=== PATIENT | male | born 1935 | race Two or more races ===

== ENCOUNTER 2024-07-04 14:25 | Inpatient (IN) | payer OTHER ==
[~2024-07-04] VITALS: Ht 160 cm; Wt 51.7 kg
[2024-07-04] MEDS: IV LR 1000 ML 1,000 ML BAG IV ONE (14:51)
[2024-07-04 15:32] LABS: APPEARANCE,URINE CLEAR (CLEAR); BILIRUBIN,URINE NEGATIVE (NEGATIVE); BLOOD, URINE TRACE-INTA Ery/uL (NEGATIVE); COLOR,URINE YELLOW (YELLOW); KETONES,URINE NEGATIVE (NEGATIVE); LEUKOCYTE ESTERASE ,URINE NEGATIVE (NEGATIVE); NITRITE, URINE NEGATIVE (NEGATIVE); PROTEIN,URINE NEGATIVE (NEGATIVE); UGLUCOSE NEGATIVE (NEGATIVE); UROBILINOGEN,URINE 0.2 EU/dL (0.2)
[2024-07-04] MEDS: CEFEPIME 1 GM in IV D5W 50 ML IV ONE (15:38)
[2024-07-04 15:39] LABS: CALCIUM, SERUM 8.4 mg/dL (8.5-10.1); CARBON DIOXIDE 23 mmol/L (21-32); CHLORIDE 108 mmol/L (98-107); CREATININE 1.9 mg/dL (0.6-1.3); GLUCOSE 144 mg/dL (74-106); POTASSIUM 3.6 mmol/L (3.5-5.1); SODIUM SERUM 141 mmol/L (136-145); UREA NITROGEN, BLOOD 57 mg/dL (7-18)
[2024-07-04] MEDS: VANCOMYCIN 1 GM in IV D5W 250 ML IV ONE (15:39)
[2024-07-04] MEDS ORDERED: NOREPINEPHRINE 8MG/250ML RTU 250 ML IV ONE (15:41)
[2024-07-04 15:44] LABS: ALANINE AMINOTRANSFERASE 33 U/L (12-78); ALBUMIN 2.7 g/dL (3.4-5.0); ALKALINE PHOSPHATASE 169 U/L (46-116); ASPARTATE AMINOTRANSFERASE 31 U/L (15-37); BILIRUBIN,DIRECT 0.2 mg/dL (0.0-0.2); BILIRUBIN,TOTAL 0.5 mg/dL (0.2-1.0); TOTAL PROTEIN, SERUM 5.7 g/dL (6.4-8.2)
[2024-07-04] MEDS: NOREPINEPHRINE 8 MG in IV D5W 242 ML IV PRN (15:56)
[2024-07-04 15:59] LABS: BASOPHILS % (AUTO) 0.1 % (0.0-2.0); HEMATOCRIT 32 % (39-51); HEMOGLOBIN 10.6 g/dL (13.5-17.5); LACTIC ACID 2.2 mmol/L (0.4-2.0); LYMPHOCYTES # (AUTO) 0.9 K/uL (0.8-4.8); LYMPHOCYTES % (AUTO) 8.5 % (20.0-44.0); MEAN CORPUSCULAR HEMOGLOBIN 30 PG (26.0-33.0); MEAN CORPUSCULAR HGB CONC 33 g/dl (31.0-36.0); MEAN CORPUSCULAR VOLUME 90 fL (80-96); MONOCYTES # (AUTO) 0.4 K/uL (0.1-1.30); NEUTROPHILS # (AUTO) 8.9 K/uL (1.8-8.9); NEUTROPHILS % (AUTO) 87.4 % (43.0-81.0); PLATELET COUNT (AUTO) 166 K/uL (150-450); RED BLOOD CELL COUNT(AUTO) 3.56 MIL/uL (4.5-6.0); RED CELL DISTRIBUTION WIDTH 15.9 % (11.5-15.0); WHITE BLOOD COUNT (AUTO) 10.2 K/uL (4.3-11.0)
[2024-07-04 16:05] LABS: INR 1.09 (0.91-1.10); PROTHROMBIN TIME 11.5 SECS (9.2-11.1)
[2024-07-04 16:14] LABS: ADD URINE CULTURE YES; BACTERIA,URINE 3+ /HPF (None Seen); SQUAMOUS EPITHELIAL CELL,UR 0-2 /HPF (None Seen); WBC,URINE 0-2 /HPF (0-3)
[2024-07-04] MEDS ORDERED: HYDR-4209 PO (16:36)
[2024-07-04] MEDS ORDERED: ACET-868 PO (16:36)
[2024-07-04] MEDS ORDERED: FERR220S2 PO (16:36)
[2024-07-04] MEDS ORDERED: VALP250S4 PO (16:36)
[2024-07-04] MEDS ORDERED: ACET-2030 PO (16:36)
[2024-07-04] MEDS ORDERED: OMEP10CA5 PO (16:36)
[2024-07-04] MEDS ORDERED: INSU100I4 SQ (16:36)
[2024-07-04] MEDS ORDERED: BISA10SU11 RC (16:36)
[2024-07-04] MEDS ORDERED: FERR325T28 GT (16:36)
[2024-07-04] MEDS ORDERED: LISI10TA29 PO (16:36)
[2024-07-04] MEDS ORDERED: MULT-213 PO (16:36)
[2024-07-04] MEDS ORDERED: POLY17PO4 PO (16:36)
[2024-07-04] MEDS ORDERED: [UNRECOGNIZED DRUG - OTHER] SQ (16:36)
[2024-07-04] MEDS ORDERED: METF-440 PO (16:36)
[2024-07-04] MEDS ORDERED: MAGN400O6 PO (16:36)
[2024-07-04] MEDS ORDERED: NITR0.4T48 SL (16:36)
[2024-07-04] MEDS ORDERED: NA P133E RC (16:36)
[2024-07-04] MEDS ORDERED: DONE5TAB34 PO (16:36)
[2024-07-04] MEDS ORDERED: OLAN5TAB3 PO (16:36)
[2024-07-04] MEDS ORDERED: GLUC1KIT IM (16:36)
[2024-07-04] MEDS ORDERED: ASPI-1169 PO (16:36)
[2024-07-04] MEDS ORDERED: CARV12.5 PO (16:36)
[2024-07-04] MEDS ORDERED: ASCO-352 PO (16:36)
[2024-07-04] MEDS ORDERED: IPRA3AMP22 IH (16:36)
[2024-07-04] MEDS ORDERED: ATOR80TA PO (16:36)
[2024-07-04] MEDS ORDERED: AMLO5TAB4 PO (16:36)
[2024-07-04] MEDS ORDERED: DOCU50LI PO (16:36)
[2024-07-04] MEDS ORDERED: ACETAMINOPHEN 325 MG TABLET PO PRN (20:00)
[2024-07-04] MEDS: IV NS 0.9% 1,000 ML IV SCH (20:00)
[2024-07-04] MEDS ORDERED: ONDANSETRON HCL/PF 4 MG/2 ML VIAL IVP PRN (20:00)
[2024-07-04] MEDS ORDERED: *INSULIN REGULAR(HUMULIN R)HUM 100 UNIT/ML VIAL SQ PRN (20:00)
[2024-07-04] MEDS ORDERED: ALBUTEROL FS 2.5 MG/0.5 ML VIAL.NEB NEB PRN (20:00)
[2024-07-04] MEDS ORDERED: DEXTROSE 50%-WATER 50 ML DISP.SYRIN IV PRN (20:00)
[2024-07-04] MEDS: HEPARIN SODIUM, PORCINE 5000 UNITS/1 ML VIAL SQ SCH (21:00)
[2024-07-04] MEDS: BLOOD SUGAR DIAGNOSTIC 1 EACH STRIP VI SCH (22:00)
[2024-07-04] MEDS: MINERAL OIL 133 ML (PYXIS) 1 EA ENEMA RC ONE (23:30)
[2024-07-05] VITALS (64 sets, daily range): BP systolic 76–169; BP diastolic 50–85; TEMP 97.1–98; O2SAT 87–100
[2024-07-05] MEDS ORDERED: IPRATROPIUM/ALBUTEROL INHALER IH SCH
[2024-07-05] MEDS ORDERED: MINERAL OIL 133 ML (PYXIS) 1 EA ENEMA RC ONE (01:39)
[2024-07-05] MEDS ORDERED: HEPARIN SODIUM, PORCINE 5000 UNITS/1 ML VIAL ONE (01:39)
[2024-07-05 05:34] LABS: ABG BASE EXCESS -3.1 mmol/L (-2.0-3.0); ABG PCO2 42.8 mmHg (35.0-48.0); ABG PH 7.341 (7.350-7.450); ABG TOTAL HEMOGLOBIN 13.8 G/dL (13.5-17.5); COHb 0.3 % (0.5-1.5); MetHb 0.3 % (0.0-1.5); O2Hb 94.4 % (94.0-97.0); SITE, ABG RIGHT RADIAL
[2024-07-05 06:15] LABS: BASOPHILS % (AUTO) 0.2 % (0.0-2.0); HEMATOCRIT 42 % (39-51); HEMOGLOBIN 13.4 g/dL (13.5-17.5); LYMPHOCYTES # (AUTO) 0.7 K/uL (0.8-4.8); LYMPHOCYTES % (AUTO) 4.4 % (20.0-44.0); MEAN CORPUSCULAR HEMOGLOBIN 29 PG (26.0-33.0); MEAN CORPUSCULAR HGB CONC 32 g/dl (31.0-36.0); MEAN CORPUSCULAR VOLUME 90 fL (80-96); MONOCYTES # (AUTO) 0.7 K/uL (0.1-1.30); MONOCYTES % (AUTO) 3.8 % (2.0-12.0); NEUTROPHILS # (AUTO) 15.6 K/uL (1.8-8.9); NEUTROPHILS % (AUTO) 91.6 % (43.0-81.0); PLATELET COUNT (AUTO) 174 K/uL (150-450); RED CELL DISTRIBUTION WIDTH 15.7 % (11.5-15.0)
[2024-07-05 07:19] LABS: ALBUMIN 2.6 g/dL (3.4-5.0); BILIRUBIN,TOTAL 0.5 mg/dL (0.2-1.0); CALCIUM, SERUM 8.2 mg/dL (8.5-10.1); CREATININE 1.1 mg/dL (0.6-1.3); MAGNESIUM 1.9 mg/dL (1.8-2.4); PHOSPHORUS 4.2 mg/dL (2.5-4.9); POTASSIUM 3.4 mmol/L (3.5-5.1); TOTAL PROTEIN, SERUM 5.9 g/dL (6.4-8.2)
[2024-07-05] MEDS: IPRATROPIUM NEB FS 0.5 MG/2.5 ML AMPUL.NEB IH SCH (08:21)
[2024-07-05] MEDS: ALBUTEROL FS 2.5 MG/0.5 ML VIAL.NEB NEB SCH (08:22)
[2024-07-05] MEDS ORDERED: IPRATROPIUM NEB FS 0.5 MG/2.5 ML AMPUL.NEB ONE (08:25)
[2024-07-05] MEDS ORDERED: ALBUTEROL FS 2.5 MG/0.5 ML VIAL.NEB ONE (08:25)
[2024-07-05] MEDS: FERROUS SULFATE (325 MG) 325 MG/TAB TABLET GT SCH (09:00)
[2024-07-05] MEDS: ASPIRIN 81 MG TAB.CHEW PO SCH (09:00)
[2024-07-05] MEDS: VALPROIC ACID 250 MG/5 ML UDC PO SCH (09:00)
[2024-07-05] MEDS: POLYETHYLENE GLYCOL 3350 17 GM POWD.PACK PO SCH (09:00)
[2024-07-05] MEDS: DOCUSATE SODIUM LIQ 100 MG/10 ML UDC PO SCH (09:00)
[2024-07-05] MEDS: DONEPEZIL 5 MG TABLET PO SCH (09:00)
[2024-07-05] MEDS: POTASSIUM CHLORIDE 20 MEQ TAB.PRT.SR PO SCH (09:00)
[2024-07-05] MEDS: OLANZAPINE 5 MG TABLET PO SCH (09:00)
[2024-07-05] MEDS: LACTULOSE 10 G/15 ML UDC (PYXIS) PO ONE (11:35)
[2024-07-05] MEDS: BISACODYL SUPP (10 MG) 10 MG/SUPP.RECT SUPP.RECT RC ONE (11:36)
[2024-07-05] MEDS: MORPHINE SULFATE INJ 2 MG/ML DISP.SYRIN IV PRN (12:13)
[2024-07-05] MEDS: SORBITOL SOLUTION 70% 30 ML SOLUTION PO ONE (12:14)
[2024-07-05 13:47] LABS: URINE TOTAL PROTEIN 55.6 mg/dL (0-11.9)
[2024-07-05] MEDS: CEFEPIME 2 GM in IV D5W 100 ML IV SCH (14:44)
[2024-07-05] MEDS: VANCOMYCIN 750 MG in IV D5W 250 ML IV SCH (14:51)
[2024-07-05] MEDS: NOREPINEPHRINE 8 MG in IV D5W 242 ML IV PRN (14:51)
[2024-07-05] MEDS ORDERED: CEFEPIME 1 GM in IV D5W 50 ML IV SCH (15:00)
[2024-07-05] MEDS ORDERED: VANCOMYCIN 500 MG in IV D5W 100ml IV SCH (15:00)
[2024-07-05] MEDS: ATORVASTATIN 40 MG TABLET PO SCH (21:52)
[2024-07-05] MEDS: INSULIN GLARGINE, 100 UNIT/ML CARTRIDGE SQ SCH (21:53)
[2024-07-05] MEDS: IV NS 0.9% 250 ML IV PRN (22:22)
[2024-07-06] VITALS (57 sets, daily range): BP systolic 105–189; BP diastolic 54–118; TEMP 97.2–98.5; O2SAT 88–100
[2024-07-06 05:34] LABS: EOSINOPHILS % (AUTO) 0.1 % (0.0-6.0); HEMATOCRIT 33 % (39-51); LYMPHOCYTES # (AUTO) 0.9 K/uL (0.8-4.8); LYMPHOCYTES % (AUTO) 11.3 % (20.0-44.0); MEAN CORPUSCULAR HEMOGLOBIN 30 PG (26.0-33.0); MEAN CORPUSCULAR HGB CONC 34 g/dl (31.0-36.0); MEAN CORPUSCULAR VOLUME 88 fL (80-96); MONOCYTES # (AUTO) 0.4 K/uL (0.1-1.30); MONOCYTES % (AUTO) 5.1 % (2.0-12.0); NEUTROPHILS # (AUTO) 6.5 K/uL (1.8-8.9); NEUTROPHILS % (AUTO) 83.5 % (43.0-81.0); PLATELET COUNT (AUTO) 141 K/uL (150-450); RED BLOOD CELL COUNT(AUTO) 3.74 MIL/uL (4.5-6.0); RED CELL DISTRIBUTION WIDTH 15.8 % (11.5-15.0); WHITE BLOOD COUNT (AUTO) 7.8 K/uL (4.3-11.0)
[2024-07-06 05:57] LABS: CALCIUM, SERUM 8.6 mg/dL (8.5-10.1); CREATININE 0.8 mg/dL (0.6-1.3); PHOSPHORUS 2.7 mg/dL (2.5-4.9); POTASSIUM 2.9 mmol/L (3.5-5.1)
[2024-07-06] MEDS: POTASSIUM CL. PREMIX PERIPHER. 50 ML IV SCH (10:47)
[2024-07-06] MEDS: IV 1/2NS 1000 ML 1,000 ML IV PRN (12:27)
[2024-07-06] MEDS: VANCOMYCIN 1 GM in IV D5W 250 ML IV SCH (15:44)
[2024-07-07] VITALS (25 sets, daily range): BP systolic 98–174; BP diastolic 63–87; TEMP 97.4–98; O2SAT 94–100
[2024-07-07] MEDS: CARVEDILOL 12.5 MG TABLET PO SCH (10:00)
[2024-07-07 10:50] LABS: CALCIUM, SERUM 8.3 mg/dL (8.5-10.1); CREATININE 0.7 mg/dL (0.6-1.3); MAGNESIUM 1.8 mg/dL (1.8-2.4); PHOSPHORUS 2.1 mg/dL (2.5-4.9); POTASSIUM 3.9 mmol/L (3.5-5.1)
[2024-07-07 10:55] LABS: BASOPHILS % (AUTO) 0.1 % (0.0-2.0); EOSINOPHILS % (AUTO) 0.5 % (0.0-6.0); HEMATOCRIT 34 % (39-51); HEMOGLOBIN 11.4 g/dL (13.5-17.5); LYMPHOCYTES % (AUTO) 13.5 % (20.0-44.0); MEAN CORPUSCULAR HEMOGLOBIN 30 PG (26.0-33.0); MEAN CORPUSCULAR HGB CONC 33 g/dl (31.0-36.0); MEAN CORPUSCULAR VOLUME 89 fL (80-96); MONOCYTES # (AUTO) 0.6 K/uL (0.1-1.30); MONOCYTES % (AUTO) 7.3 % (2.0-12.0); NEUTROPHILS # (AUTO) 6.1 K/uL (1.8-8.9); NEUTROPHILS % (AUTO) 78.6 % (43.0-81.0); PLATELET COUNT (AUTO) 110 K/uL (150-450); RED BLOOD CELL COUNT(AUTO) 3.84 MIL/uL (4.5-6.0); RED CELL DISTRIBUTION WIDTH 16.2 % (11.5-15.0); WHITE BLOOD COUNT (AUTO) 7.7 K/uL (4.3-11.0)
[2024-07-07] MEDS: LISINOPRIL (10MG) 10 MG TABLET PO SCH (11:54)
[2024-07-07] MEDS: AMLODIPINE BESYLATE 5 MG TABLET PO SCH (11:54)
[2024-07-07] MEDS: K PHOS NEUTRAL 250 MG TABLET PO ONE (16:43)
[2024-07-07] MEDS: INSULIN REGULAR, HUMAN 100 UNIT/ML 3 ML VIAL SQ PRN (16:59)
[2024-07-08] VITALS (44 sets, daily range): BP systolic 72–158; BP diastolic 57–89; TEMP 97.3–98.2; O2SAT 95–100
[2024-07-08 06:37] LABS: BASOPHILS % (AUTO) 0.2 % (0.0-2.0); EOSINOPHILS # (AUTO) 0.1 K/uL (0.0-0.7); EOSINOPHILS % (AUTO) 1.1 % (0.0-6.0); HEMATOCRIT 36 % (39-51); HEMOGLOBIN 11.3 g/dL (13.5-17.5); LYMPHOCYTES # (AUTO) 1.2 K/uL (0.8-4.8); LYMPHOCYTES % (AUTO) 15.4 % (20.0-44.0); MEAN CORPUSCULAR HEMOGLOBIN 30 PG (26.0-33.0); MEAN CORPUSCULAR HGB CONC 32 g/dl (31.0-36.0); MEAN CORPUSCULAR VOLUME 93 fL (80-96); MONOCYTES # (AUTO) 0.5 K/uL (0.1-1.30); NEUTROPHILS # (AUTO) 6.3 K/uL (1.8-8.9); NEUTROPHILS % (AUTO) 77.3 % (43.0-81.0); PLATELET COUNT (AUTO) 105 K/uL (150-450); RED BLOOD CELL COUNT(AUTO) 3.81 MIL/uL (4.5-6.0); RED CELL DISTRIBUTION WIDTH 16.2 % (11.5-15.0); WHITE BLOOD COUNT (AUTO) 8.1 K/uL (4.3-11.0)
[2024-07-08 06:49] LABS: CALCIUM, SERUM 8.8 mg/dL (8.5-10.1); CREATININE 0.6 mg/dL (0.6-1.3); MAGNESIUM 1.9 mg/dL (1.8-2.4); PHOSPHORUS 2.7 mg/dL (2.5-4.9); POTASSIUM 3.4 mmol/L (3.5-5.1)
[2024-07-08] MEDS: POTASSIUM CHLORIDE 20 MEQ TAB.PRT.SR PO SCH (10:44)
[2024-07-08] MEDS: NOREPINEPHRINE 8 MG in IV D5W 242 ML IV PRN (14:08)
[2024-07-08 14:26] LABS: ABG OXYGEN SATURATION 97.5 % (94.0-98.0); ABG PH 7.305 (7.350-7.450); ABG PO2 112.9 mmHg (83.0-108.0); ABG TOTAL HEMOGLOBIN 12.2 G/dL (13.5-17.5); COHb 0.3 % (0.5-1.5); MetHb 0.2 % (0.0-1.5); PEEP,BG 0 cm H2O; SITE, ABG RIGHT RADIAL; VT, ABG 450 mL
[2024-07-08] MEDS ORDERED: DEXTROSE 50%-WATER 50 ML DISP.SYRIN IV PRN (14:30)
[2024-07-08 14:35] LABS: CREATININE 0.8 mg/dL (0.6-1.3); POTASSIUM 3.8 mmol/L (3.5-5.1)
[2024-07-08 14:36] LABS: BASOPHILS % (AUTO) 0.3 % (0.0-2.0); EOSINOPHILS % (AUTO) 0.5 % (0.0-6.0); HEMATOCRIT 35 % (39-51); LYMPHOCYTES # (AUTO) 1.4 K/uL (0.8-4.8); LYMPHOCYTES % (AUTO) 17.3 % (20.0-44.0); MEAN CORPUSCULAR HEMOGLOBIN 30 PG (26.0-33.0); MEAN CORPUSCULAR HGB CONC 32 g/dl (31.0-36.0); MEAN CORPUSCULAR VOLUME 96 fL (80-96); MONOCYTES # (AUTO) 0.4 K/uL (0.1-1.30); MONOCYTES % (AUTO) 4.7 % (2.0-12.0); NEUTROPHILS # (AUTO) 6.4 K/uL (1.8-8.9); NEUTROPHILS % (AUTO) 77.2 % (43.0-81.0); PLATELET COUNT (AUTO) 115 K/uL (150-450); RED BLOOD CELL COUNT(AUTO) 3.65 MIL/uL (4.5-6.0); RED CELL DISTRIBUTION WIDTH 17.1 % (11.5-15.0); WHITE BLOOD COUNT (AUTO) 8.3 K/uL (4.3-11.0)
[2024-07-08 14:39] LABS: MAGNESIUM 1.8 mg/dL (1.8-2.4); PHOSPHORUS 4.5 mg/dL (2.5-4.9)
[2024-07-08] MEDS ORDERED: EPINEPHRINE (1:10,000) SYRINGE 1 MG/10 ML DISP.SYRIN IVP ONE (14:39)
[2024-07-08] MEDS: IV D5/0.45 NACL 1,000 ML IV SCH (15:14)
[2024-07-08 15:17] LABS: LYMPHOCYTES % (MANUAL) 24 % (16-48); MONOCYTES % (MANUAL) 1 % (0-11.0); NEUTROPHILS % (MANUAL) 75 (42-76); PLATELET ESTIMATE DECREASED
[2024-07-08] MEDS: BLOOD SUGAR DIAGNOSTIC 1 EACH STRIP IN SCH (17:30)
[2024-07-08] MEDS: PROPOFOL 100 ML IV PRN (19:07)
[2024-07-09] VITALS (84 sets, daily range): BP systolic 63–171; BP diastolic 52–99; TEMP 97.8–99; O2SAT 98–100
[2024-07-09 05:02] LABS: BASOPHILS % (AUTO) 0.2 % (0.0-2.0); EOSINOPHILS # (AUTO) 0.2 K/uL (0.0-0.7); HEMATOCRIT 38 % (39-51); HEMOGLOBIN 12.2 g/dL (13.5-17.5); LYMPHOCYTES # (AUTO) 1.9 K/uL (0.8-4.8); LYMPHOCYTES % (AUTO) 11.2 % (20.0-44.0); MEAN CORPUSCULAR HEMOGLOBIN 30 PG (26.0-33.0); MEAN CORPUSCULAR HGB CONC 32 g/dl (31.0-36.0); MEAN CORPUSCULAR VOLUME 92 fL (80-96); MONOCYTES # (AUTO) 0.9 K/uL (0.1-1.30); MONOCYTES % (AUTO) 5.1 % (2.0-12.0); NEUTROPHILS % (AUTO) 82.5 % (43.0-81.0); PLATELET COUNT (AUTO) 109 K/uL (150-450); RED CELL DISTRIBUTION WIDTH 16.1 % (11.5-15.0); WHITE BLOOD COUNT (AUTO) 16.9 K/uL (4.3-11.0)
[2024-07-09 05:14] LABS: ALBUMIN 1.9 g/dL (3.4-5.0); BILIRUBIN,TOTAL 0.5 mg/dL (0.2-1.0); CALCIUM, SERUM 7.8 mg/dL (8.5-10.1); CREATININE 0.8 mg/dL (0.6-1.3); MAGNESIUM 1.8 mg/dL (1.8-2.4); PHOSPHORUS 2.3 mg/dL (2.5-4.9); POTASSIUM 3.1 mmol/L (3.5-5.1); TOTAL PROTEIN, SERUM 5.1 g/dL (6.4-8.2)
[2024-07-09] MEDS ORDERED: LACTULOSE 10 G/15 ML UDC (PYXIS) PO PRN (10:00)
[2024-07-09] MEDS: POTASSIUM CHLORIDE 20 MEQ TAB.PRT.SR PO SCH (10:50)
[2024-07-09] MEDS: LACTULOSE 10 G/15 ML UDC (PYXIS) GT ONE (11:58)
[2024-07-09 13:03] LABS: LACTIC ACID 2.2 mmol/L (0.4-2.0)
[2024-07-09] MEDS ORDERED: PHARMACY TO CHANGE PO MEDS TO GT/NG XX PRN (16:00)
[2024-07-09] MEDS: OLANZAPINE 5 MG TABLET GT SCH (16:50)
[2024-07-09] MEDS: DOCUSATE SODIUM LIQ 100 MG/10 ML UDC GT SCH (16:50)
[2024-07-09] MEDS: NEUTRA PHOS 1 POWD.PACKET GT ONE (16:51)
[2024-07-09] MEDS: CARVEDILOL 12.5 MG TABLET GT SCH (17:00)
[2024-07-09] MEDS: VALPROIC ACID 250 MG/5 ML UDC GT SCH (17:30)
[2024-07-09 18:37] LABS: BILIRUBIN,DIRECT 0.1 mg/dL (0.0-0.2)
[2024-07-09 18:43] LABS: LACTIC ACID REFLEX 1.6 mmol/L (0.4-1.9)
[2024-07-09] MEDS: LACTULOSE 10 G/15 ML UDC (PYXIS) PO ONE (19:40)
[2024-07-09] MEDS: MEROPENEM 1 G in IV NS 0.9% 100 ML IV SCH (21:00)
[2024-07-09] MEDS: ATORVASTATIN 40 MG TABLET GT SCH (22:15)
[2024-07-10] VITALS (99 sets, daily range): BP systolic 58–223; BP diastolic 48–159; TEMP 98.3–99.1; O2SAT 93–100
[2024-07-10 05:08] LABS: BASOPHILS % (AUTO) 0.3 % (0.0-2.0); EOSINOPHILS % (AUTO) 0.2 % (0.0-6.0); HEMATOCRIT 36 % (39-51); HEMOGLOBIN 12.2 g/dL (13.5-17.5); LYMPHOCYTES % (AUTO) 8.7 % (20.0-44.0); MEAN CORPUSCULAR HEMOGLOBIN 30 PG (26.0-33.0); MEAN CORPUSCULAR HGB CONC 34 g/dl (31.0-36.0); MEAN CORPUSCULAR VOLUME 88 fL (80-96); MONOCYTES # (AUTO) 0.6 K/uL (0.1-1.30); MONOCYTES % (AUTO) 5.5 % (2.0-12.0); NEUTROPHILS # (AUTO) 9.9 K/uL (1.8-8.9); NEUTROPHILS % (AUTO) 85.3 % (43.0-81.0); PLATELET COUNT (AUTO) 117 K/uL (150-450); RED BLOOD CELL COUNT(AUTO) 4.11 MIL/uL (4.5-6.0); WHITE BLOOD COUNT (AUTO) 11.6 K/uL (4.3-11.0)
[2024-07-10 05:38] LABS: CALCIUM, SERUM 8.3 mg/dL (8.5-10.1); CREATININE 0.8 mg/dL (0.6-1.3); MAGNESIUM 1.5 mg/dL (1.8-2.4); PHOSPHORUS 2.6 mg/dL (2.5-4.9)
[2024-07-10 05:58] LABS: POTASSIUM 2.7 mmol/L (3.5-5.1)
[2024-07-10] MEDS: GLUCERNA 1.2 1,000 ML BOTTLE NG PRN (06:00)
[2024-07-10] MEDS ORDERED: POTASSIUM CHLORIDE 10 MEQ/50 ML PREMIXED IVPB FOR PERIPHERAL LINE IV ONE (06:30)
[2024-07-10] MEDS: POTASSIUM CL. PREMIX PERIPHER. 50 ML IV SCH ×2 (06:43→17:06)
[2024-07-10] MEDS: AMLODIPINE BESYLATE 5 MG TABLET GT SCH (09:00)
[2024-07-10] MEDS: LISINOPRIL (10MG) 10 MG TABLET GT SCH (09:00)
[2024-07-10] MEDS: IV NS 0.9% 500 ML IV ONE (09:27)
[2024-07-10] MEDS: POLYETHYLENE GLYCOL 3350 17 GM POWD.PACK GT SCH (09:29)
[2024-07-10] MEDS: ASPIRIN 81 MG TAB.CHEW GT SCH (09:31)
[2024-07-10] MEDS: DONEPEZIL 5 MG TABLET GT SCH (09:31)
[2024-07-10] MEDS: METOCLOPRAMIDE HCL 10 MG/2 ML VIAL IV SCH (11:16)
[2024-07-10] MEDS: Magnesium 1GM/D5W 100ML PREMIX 100 ML IV SCH (11:17)
[2024-07-10] MEDS: NOREPINEPHRINE 8 MG in IV D5W 242 ML IV PRN (13:29)
[2024-07-10 15:11] LABS: CALCIUM, SERUM 8.4 mg/dL (8.5-10.1); CREATININE 0.9 mg/dL (0.6-1.3)
[2024-07-10 15:24] LABS: POTASSIUM 2.5 mmol/L (3.5-5.1)
[2024-07-10] MEDS: POTASSIUM CHLORIDE 20 MEQ POWDER PACKET GT SCH (16:45)
[2024-07-10] MEDS: INSULIN REGULAR, HUMAN 100 UNIT/ML 3 ML VIAL SQ PRN (23:20)
[2024-07-11] VITALS (92 sets, daily range): BP systolic 69–154; BP diastolic 54–99; TEMP 97.5–98.2; O2SAT 88–100
[2024-07-11 00:30] LABS: CALCIUM, SERUM 8.3 mg/dL (8.5-10.1)
[2024-07-11 04:38] LABS: BASOPHILS % (AUTO) 0.1 % (0.0-2.0); EOSINOPHILS # (AUTO) 0.1 K/uL (0.0-0.7); HEMATOCRIT 34 % (39-51); HEMOGLOBIN 11.2 g/dL (13.5-17.5); LYMPHOCYTES # (AUTO) 1.2 K/uL (0.8-4.8); LYMPHOCYTES % (AUTO) 9.5 % (20.0-44.0); MEAN CORPUSCULAR HEMOGLOBIN 29 PG (26.0-33.0); MEAN CORPUSCULAR HGB CONC 33 g/dl (31.0-36.0); MEAN CORPUSCULAR VOLUME 88 fL (80-96); MONOCYTES # (AUTO) 0.8 K/uL (0.1-1.30); MONOCYTES % (AUTO) 5.9 % (2.0-12.0); NEUTROPHILS # (AUTO) 10.6 K/uL (1.8-8.9); NEUTROPHILS % (AUTO) 83.5 % (43.0-81.0); PLATELET COUNT (AUTO) 122 K/uL (150-450); RED BLOOD CELL COUNT(AUTO) 3.86 MIL/uL (4.5-6.0); RED CELL DISTRIBUTION WIDTH 15.9 % (11.5-15.0); WHITE BLOOD COUNT (AUTO) 12.7 K/uL (4.3-11.0)
[2024-07-11 04:56] LABS: ALBUMIN 2.1 g/dL (3.4-5.0); BILIRUBIN,TOTAL 0.6 mg/dL (0.2-1.0); CALCIUM, SERUM 8.2 mg/dL (8.5-10.1); MAGNESIUM 1.9 mg/dL (1.8-2.4); PHOSPHORUS 2.3 mg/dL (2.5-4.9); TOTAL PROTEIN, SERUM 5.4 g/dL (6.4-8.2)
[2024-07-11] MEDS: POTASSIUM CHLORIDE 10 MEQ/50 ML PREMIXED IVPB FOR PERIPHERAL LINE IV ONE (07:06)
[2024-07-11] MEDS: SIMETHICONE 80 MG TAB.CHEW PO SCH (09:18)
[2024-07-11] MEDS: FAMOTIDINE/PF INJ 20 MG/2 ML VIAL IV SCH (09:18)
[2024-07-11] MEDS: POTASSIUM CL. PREMIX PERIPHER. 50 ML IV SCH (11:20)
[2024-07-11] MEDS: NEUTRA PHOS 1 POWD.PACKET PO ONE (15:29)
[2024-07-11] MEDS: Magnesium 1GM/D5W 100ML PREMIX 100 ML IV SCH (17:16)
[2024-07-12] VITALS (87 sets, daily range): BP systolic 84–208; BP diastolic 50–122; TEMP 97.2–97.7; O2SAT 92–100
[2024-07-12 05:24] LABS: BASOPHILS % (AUTO) 0.1 % (0.0-2.0); EOSINOPHILS # (AUTO) 0.1 K/uL (0.0-0.7); EOSINOPHILS % (AUTO) 1.3 % (0.0-6.0); HEMATOCRIT 33 % (39-51); LYMPHOCYTES # (AUTO) 0.8 K/uL (0.8-4.8); LYMPHOCYTES % (AUTO) 8.4 % (20.0-44.0); MEAN CORPUSCULAR HEMOGLOBIN 30 PG (26.0-33.0); MEAN CORPUSCULAR HGB CONC 33 g/dl (31.0-36.0); MEAN CORPUSCULAR VOLUME 90 fL (80-96); MONOCYTES # (AUTO) 0.7 K/uL (0.1-1.30); MONOCYTES % (AUTO) 7.1 % (2.0-12.0); NEUTROPHILS # (AUTO) 8.2 K/uL (1.8-8.9); NEUTROPHILS % (AUTO) 83.1 % (43.0-81.0); PLATELET COUNT (AUTO) 97 K/uL (150-450); RED BLOOD CELL COUNT(AUTO) 3.66 MIL/uL (4.5-6.0); RED CELL DISTRIBUTION WIDTH 15.8 % (11.5-15.0); WHITE BLOOD COUNT (AUTO) 9.9 K/uL (4.3-11.0)
[2024-07-12 05:35] LABS: CALCIUM, SERUM 8.2 mg/dL (8.5-10.1); CREATININE 0.6 mg/dL (0.6-1.3); MAGNESIUM 2.3 mg/dL (1.8-2.4); PHOSPHORUS 2.2 mg/dL (2.5-4.9); POTASSIUM 3.8 mmol/L (3.5-5.1)
[2024-07-12 06:12] LABS: ANISOCYTOSIS 1+; BASOPHILS % (MANUAL) 0 % (0.0-2.0); EOSINOPHILS % (MANUAL) 2 % (0-4); LYMPHOCYTES % (MANUAL) 10 % (16-48); MONOCYTES % (MANUAL) 6 % (0-11.0); NEUTROPHILS % (MANUAL) 82 (42-76); PLATELET ESTIMATE DECREASED
[2024-07-12] MEDS: IV D5/0.45 NACL 1,000 ML IV PRN (11:00)
[2024-07-12] MEDS: Sodium Phosphate 15 MMOL in IV NS 0.9% 245 ML IV SCH (17:29)
[2024-07-12] MEDS: VALPROATE 250 MG in IV D5W 100 ML IV SCH (21:28)
[2024-07-12] MEDS ORDERED: MICAFUNGIN SODIUM 100 MG VIAL IV ONE (21:53)
[2024-07-12] MEDS: MICAFUNGIN SODIUM 100 MG in IV NS 0.9% 100 ML IV SCH (22:33)
[2024-07-13] VITALS (44 sets, daily range): BP systolic 92–171; BP diastolic 55–105; TEMP 97.2–98; O2SAT 95–100
[2024-07-13 05:17] LABS: BASOPHILS % (AUTO) 0.1 % (0.0-2.0); EOSINOPHILS # (AUTO) 0.1 K/uL (0.0-0.7); EOSINOPHILS % (AUTO) 0.9 % (0.0-6.0); HEMATOCRIT 32 % (39-51); HEMOGLOBIN 10.6 g/dL (13.5-17.5); LYMPHOCYTES # (AUTO) 0.5 K/uL (0.8-4.8); LYMPHOCYTES % (AUTO) 6.2 % (20.0-44.0); MEAN CORPUSCULAR HEMOGLOBIN 29 PG (26.0-33.0); MEAN CORPUSCULAR HGB CONC 34 g/dl (31.0-36.0); MEAN CORPUSCULAR VOLUME 87 fL (80-96); MONOCYTES # (AUTO) 0.6 K/uL (0.1-1.30); MONOCYTES % (AUTO) 7.3 % (2.0-12.0); NEUTROPHILS # (AUTO) 7.5 K/uL (1.8-8.9); NEUTROPHILS % (AUTO) 85.5 % (43.0-81.0); PLATELET COUNT (AUTO) 101 K/uL (150-450); RED BLOOD CELL COUNT(AUTO) 3.62 MIL/uL (4.5-6.0); RED CELL DISTRIBUTION WIDTH 15.6 % (11.5-15.0); WHITE BLOOD COUNT (AUTO) 8.8 K/uL (4.3-11.0)
[2024-07-13 05:34] LABS: CALCIUM, SERUM 8.3 mg/dL (8.5-10.1); CREATININE 0.6 mg/dL (0.6-1.3); MAGNESIUM 1.9 mg/dL (1.8-2.4); POTASSIUM 3.8 mmol/L (3.5-5.1)
[2024-07-13] MEDS ORDERED: ATROPINE SULFATE 1 MG/10 ML DISP.SYRIN IV ONE (09:30)
[2024-07-13] MEDS ORDERED: NEOSTIGMINE METHYLSULFATE INJ 1 MG/ML VIAL IV ONE (09:30)
[2024-07-13] MEDS: hydrALAZINE HCL IV 20 MG VIAL IV PRN (20:29)
[2024-07-14] VITALS (44 sets, daily range): BP systolic 93–165; BP diastolic 58–103; TEMP 97.2–97.9; O2SAT 96–100
[2024-07-14 04:57] LABS: BASOPHILS % (AUTO) 0.1 % (0.0-2.0); EOSINOPHILS # (AUTO) 0.1 K/uL (0.0-0.7); EOSINOPHILS % (AUTO) 1.1 % (0.0-6.0); HEMATOCRIT 33 % (39-51); HEMOGLOBIN 11.3 g/dL (13.5-17.5); LYMPHOCYTES # (AUTO) 0.7 K/uL (0.8-4.8); LYMPHOCYTES % (AUTO) 9.7 % (20.0-44.0); MEAN CORPUSCULAR HEMOGLOBIN 29 PG (26.0-33.0); MEAN CORPUSCULAR HGB CONC 34 g/dl (31.0-36.0); MEAN CORPUSCULAR VOLUME 87 fL (80-96); MONOCYTES # (AUTO) 0.5 K/uL (0.1-1.30); MONOCYTES % (AUTO) 6.9 % (2.0-12.0); NEUTROPHILS # (AUTO) 6.2 K/uL (1.8-8.9); NEUTROPHILS % (AUTO) 82.2 % (43.0-81.0); PLATELET COUNT (AUTO) 112 K/uL (150-450); RED BLOOD CELL COUNT(AUTO) 3.83 MIL/uL (4.5-6.0); RED CELL DISTRIBUTION WIDTH 15.3 % (11.5-15.0); WHITE BLOOD COUNT (AUTO) 7.6 K/uL (4.3-11.0)
[2024-07-14 05:11] LABS: CREATININE 0.6 mg/dL (0.6-1.3); MAGNESIUM 1.6 mg/dL (1.8-2.4); PHOSPHORUS 2.7 mg/dL (2.5-4.9); POTASSIUM 3.4 mmol/L (3.5-5.1)
[2024-07-14] MEDS: FAMOTIDINE (20 MG) 20 MG TABLET GT SCH (08:25)
[2024-07-14] MEDS ORDERED: TPN/PPN PER PHARMACY IV PRN (09:30)
[2024-07-14] MEDS: MAGNESIUM OXIDE 400 MG TABLET GT ONE (10:23)
[2024-07-14] MEDS: POTASSIUM CHLORIDE 20 MEQ POWDER PACKET NG SCH (10:23)
[2024-07-14] MEDS: ACETYLCYSTEINE 10% SOLN 400 MG/4 ML VIAL NEB SCH (10:30)
[2024-07-14] MEDS: TPN #1 IV SCH (17:38)
[2024-07-14] MEDS ORDERED: ANESTHESIA TRAY IN PYXIS 1 EA TRAY MC ONE (20:02)
[2024-07-15] VITALS (26 sets, daily range): BP systolic 92–172; BP diastolic 50–94; TEMP 97.2–98.9; O2SAT 95–100
[2024-07-15 04:57] LABS: CALCIUM, SERUM 8.4 mg/dL (8.5-10.1); CREATININE 0.6 mg/dL (0.6-1.3); MAGNESIUM 1.7 mg/dL (1.8-2.4); PHOSPHORUS 2.4 mg/dL (2.5-4.9); POTASSIUM 3.4 mmol/L (3.5-5.1)
[2024-07-15 05:09] LABS: BASOPHILS % (AUTO) 0.1 % (0.0-2.0); EOSINOPHILS # (AUTO) 0.1 K/uL (0.0-0.7); EOSINOPHILS % (AUTO) 1.1 % (0.0-6.0); HEMATOCRIT 35 % (39-51); HEMOGLOBIN 11.6 g/dL (13.5-17.5); LYMPHOCYTES # (AUTO) 0.7 K/uL (0.8-4.8); MEAN CORPUSCULAR HEMOGLOBIN 29 PG (26.0-33.0); MEAN CORPUSCULAR HGB CONC 33 g/dl (31.0-36.0); MEAN CORPUSCULAR VOLUME 87 fL (80-96); MONOCYTES # (AUTO) 0.5 K/uL (0.1-1.30); MONOCYTES % (AUTO) 5.9 % (2.0-12.0); NEUTROPHILS # (AUTO) 7.5 K/uL (1.8-8.9); NEUTROPHILS % (AUTO) 84.9 % (43.0-81.0); PLATELET COUNT (AUTO) 138 K/uL (150-450); RED BLOOD CELL COUNT(AUTO) 4.01 MIL/uL (4.5-6.0); RED CELL DISTRIBUTION WIDTH 15.4 % (11.5-15.0); WHITE BLOOD COUNT (AUTO) 8.9 K/uL (4.3-11.0)
[2024-07-15] MEDS: MAGNESIUM OXIDE 400 MG TABLET PO ONE (09:55)
[2024-07-15] MEDS: POTASSIUM PHOSPHATE MM 7.5 MMOL in IV NS 0.9% 100 ML IV SCH (10:45)
[2024-07-15] MEDS: FERROUS SULFATE (325 MG) 325 MG/TAB TABLET NG SCH (13:07)
[2024-07-15] MEDS: THERAHONEY GEL 1.5 OZ TUBE TP SCH (13:07)
[2024-07-15] MEDS: FAT EMULSION 20% 500 ML in PREMIX 1 EA IV SCH (13:11)
[2024-07-15] MEDS: TPN #2 IV SCH (15:07)
[2024-07-15] MEDS: DOCUSATE SODIUM LIQ 100 MG/10 ML UDC NG SCH (17:29)
[2024-07-15] MEDS: OLANZAPINE 5 MG TABLET NG SCH (17:29)
[2024-07-15] MEDS: FAMOTIDINE (20 MG) 20 MG TABLET NG SCH (21:04)
[2024-07-16] VITALS (57 sets, daily range): BP systolic 55–156; BP diastolic 39–85; TEMP 97.7–98.8; O2SAT 96–100
[2024-07-16 05:11] LABS: CALCIUM, SERUM 8.2 mg/dL (8.5-10.1); CREATININE 0.5 mg/dL (0.6-1.3); MAGNESIUM 1.8 mg/dL (1.8-2.4); PHOSPHORUS 2.1 mg/dL (2.5-4.9)
[2024-07-16] MEDS: TPN #3 IV SCH (07:20)
[2024-07-16] MEDS: AMLODIPINE BESYLATE 5 MG TABLET NG SCH (09:00)
[2024-07-16] MEDS: LISINOPRIL (10MG) 10 MG TABLET NG SCH (09:00)
[2024-07-16] MEDS: ASPIRIN 81 MG TAB.CHEW NG SCH (09:46)
[2024-07-16] MEDS: DONEPEZIL 5 MG TABLET NG SCH (09:47)
[2024-07-16] MEDS: NEOMY SULF/BACITRAC ZN/POLY 15 GM TUBE TP SCH (09:48)
[2024-07-16] MEDS: POTASSIUM CL. PREMIX PERIPHER. 50 ML IV SCH (10:01)
[2024-07-16] MEDS: Magnesium 1GM/D5W 100ML PREMIX 100 ML IV SCH (14:50)
[2024-07-16] MEDS: POTASSIUM PHOSPHATE MM 5 MMOL in IV NS 0.9% 100 ML IV SCH (16:10)
[2024-07-16] MEDS: TPN #4 IV SCH (21:44)
[2024-07-17] VITALS (42 sets, daily range): BP systolic 84–158; BP diastolic 54–85; TEMP 97.3–98.6; O2SAT 96–100
[2024-07-17 04:43] LABS: BASOPHILS % (AUTO) 0.3 % (0.0-2.0); EOSINOPHILS # (AUTO) 0.1 K/uL (0.0-0.7); EOSINOPHILS % (AUTO) 1.6 % (0.0-6.0); HEMATOCRIT 29 % (39-51); HEMOGLOBIN 9.8 g/dL (13.5-17.5); LYMPHOCYTES # (AUTO) 0.5 K/uL (0.8-4.8); MEAN CORPUSCULAR HEMOGLOBIN 29 PG (26.0-33.0); MEAN CORPUSCULAR HGB CONC 34 g/dl (31.0-36.0); MEAN CORPUSCULAR VOLUME 87 fL (80-96); MONOCYTES # (AUTO) 0.4 K/uL (0.1-1.30); MONOCYTES % (AUTO) 6.4 % (2.0-12.0); NEUTROPHILS # (AUTO) 5.6 K/uL (1.8-8.9); NEUTROPHILS % (AUTO) 83.7 % (43.0-81.0); PLATELET COUNT (AUTO) 108 K/uL (150-450); RED BLOOD CELL COUNT(AUTO) 3.33 MIL/uL (4.5-6.0); RED CELL DISTRIBUTION WIDTH 15.3 % (11.5-15.0); WHITE BLOOD COUNT (AUTO) 6.7 K/uL (4.3-11.0)
[2024-07-17 04:50] LABS: CALCIUM, SERUM 8.5 mg/dL (8.5-10.1); CREATININE 0.5 mg/dL (0.6-1.3); PHOSPHORUS 2.3 mg/dL (2.5-4.9); POTASSIUM 3.3 mmol/L (3.5-5.1)
[2024-07-17] MEDS: POTASSIUM PHOSPHATE MM 7.5 MMOL in IV NS 0.9% 100 ML IV SCH ×2 (08:19→12:03)
[2024-07-17] MEDS ORDERED: POTASSIUM PHOSPHATE MM 7.5 MMOL in IV NS 0.9% 100 ML IV SCH (12:00)
[2024-07-17] MEDS: TPN #5 IV SCH (12:11)
[2024-07-17] MEDS: Magnesium 1GM/D5W 100ML PREMIX 100 ML IV SCH (19:45)
[2024-07-17] MEDS: FAMOTIDINE/PF INJ 20 MG/2 ML VIAL IV SCH (20:21)
[2024-07-17] MEDS: POTASSIUM CL. PREMIX PERIPHER. 50 ML IV SCH (20:21)
[2024-07-18] VITALS (13 sets, daily range): BP systolic 91–123; BP diastolic 58–73; TEMP 98.1–98.3; O2SAT 98–100
[2024-07-18] MEDS: TPN #6 IV SCH (00:39)
[2024-07-18 04:55] LABS: CREATININE 0.5 mg/dL (0.6-1.3); MAGNESIUM 1.9 mg/dL (1.8-2.4); PHOSPHORUS 2.3 mg/dL (2.5-4.9)
[2024-07-18 05:29] LABS: POTASSIUM 2.6 mmol/L (3.5-5.1)
[2024-07-18] MEDS: POTASSIUM CL. PREMIX PERIPHER. 50 ML IV SCH ×2 (06:43→10:26)
[2024-07-18] MEDS: POTASSIUM PHOSPHATE MM 15 MMOL in IV NS 0.9% 250 ML IV SCH (09:26)
[2024-07-18] MEDS: TPN #7 IV SCH (11:43)
[2024-07-18] MEDS ORDERED: POTASSIUM CL. PREMIX PERIPHER. 50 ML IV SCH (17:00)
== END 2024-07-18 12:49 | disposition short-term general hospital (02) | DRG 720 ==
LOC: ER 14:31 → TRANSITION 07-05 01:44 → ICU 07-05 07:38 → TELE1 07-07 10:37 → ICU 07-08 13:00
PROVIDERS: ADMIT Internal Medicine; ATTEND Nurse Practitioner Acute Care
PROC: 5A1955Z Respiratory Ventilation, Greater than 96 Consecutive Hours (ICD-10-PCS; principal; 2024-07-08)
PROC: 0BH17EZ Insertion of Endotracheal Airway into Trachea, Via Natural or Artificial Opening (ICD-10-PCS; 2024-07-08)
PROC: 5A12012 Performance of Cardiac Output, Single, Manual (ICD-10-PCS; 2024-07-08)
PROC: 0JB70ZZ Excision of Back Subcutaneous Tissue and Fascia, Open Approach (ICD-10-PCS; 2024-07-09)
PROC: 0D9E8ZZ Drainage of Large Intestine, Via Natural or Artificial Opening Endoscopic (ICD-10-PCS; 2024-07-14)
PROC: 02HV33Z Insertion of Infusion Device into Superior Vena Cava, Percutaneous Approach (ICD-10-PCS; 2024-07-14)
PROC: B548ZZA Ultrasonography of Superior Vena Cava, Guidance (ICD-10-PCS; 2024-07-14)
PROC: 0JB70ZZ Excision of Back Subcutaneous Tissue and Fascia, Open Approach (ICD-10-PCS; 2024-07-15)
DX: A41.9 Sepsis, unspecified organism (principal); J96.01 Acute respiratory failure with hypoxia; R65.21 Severe sepsis with septic shock; J69.0 Pneumonitis due to inhalation of food and vomit; G92.8 Other toxic encephalopathy; S14.153A Other incomplete lesion at C3 level of cervical spinal cord, initial encounter; S12.200A Unspecified displaced fracture of third cervical vertebra, initial encounter for closed fracture; L89.153 Pressure ulcer of sacral region, stage 3; I46.9 Cardiac arrest, cause unspecified; T17.890A Other foreign object in other parts of respiratory tract causing asphyxiation, initial encounter; E87.22 Chronic metabolic acidosis; E87.21 Acute metabolic acidosis; J15.9 Unspecified bacterial pneumonia; I21.A1 Myocardial infarction type 2; E87.1 Hypo-osmolality and hyponatremia; D69.6 Thrombocytopenia, unspecified; N17.9 Acute kidney failure, unspecified; K56.7 Ileus, unspecified; B95.2 Enterococcus as the cause of diseases classified elsewhere; D64.9 Anemia, unspecified; E78.5 Hyperlipidemia, unspecified; E83.42 Hypomagnesemia; E86.0 Dehydration; E87.0 Hyperosmolality and hypernatremia; E87.6 Hypokalemia; F03.90 Unspecified dementia, unspecified severity, without behavioral disturbance, psychotic disturbance, mood disturbance, and anxiety; K21.9 Gastro-esophageal reflux disease without esophagitis; K59.81 Ogilvie syndrome; N39.0 Urinary tract infection, site not specified; Z99.11 Dependence on respirator [ventilator] status; Z88.0 Allergy status to penicillin; Z79.4 Long term (current) use of insulin; Z79.84 Long term (current) use of oral hypoglycemic drugs; Z87.891 Personal history of nicotine dependence; J90 Pleural effusion, not elsewhere classified; K56.41 Fecal impaction; J98.11 Atelectasis; W19.XXXA Unspecified fall, initial encounter; N18.9 Chronic kidney disease, unspecified; I12.9 Hypertensive chronic kidney disease with stage 1 through stage 4 chronic kidney disease, or unspecified chronic kidney disease; S01.81XA Laceration without foreign body of other part of head, initial encounter; S01.21XA Laceration without foreign body of nose, initial encounter; X58.XXXA Exposure to other specified factors, initial encounter; Y93.9 Activity, unspecified; E83.9 Disorder of mineral metabolism, unspecified; M89.8X9 Other specified disorders of bone, unspecified site; R29.6 Repeated falls; S06.5X0D Traumatic subdural hemorrhage without loss of consciousness, subsequent encounter; Y99.9 Unspecified external cause status; M48.02 Spinal stenosis, cervical region; Y92.129 Unspecified place in nursing home as the place of occurrence of the external cause; E11.22 Type 2 diabetes mellitus with diabetic chronic kidney disease
CPT/HCPCS: 31720; 36415; 36569; 36600; 70450-TC; 71045-TC; 71250-TC; 72125-TC; 74018; 80048-TC; 80053-TC; 80061-TC; 80076-TC; 80202-TC; 81001; 82040-TC; 82248-TC; 82570-TC; 82803-TC; 82962-TC; 83605-TC; 83735-TC; 84100-TC; 84300-TC; 84478-TC; 84484-TC; 85025-TC; 85730-TC; 87040-TC; 87081-TC; 87086-TC; 87186-TC; 92950-TC; 93307-TC; 94002-TC; 94003-TC; 94761-TC; 94799-TC; A4216; A4223; A6403; A9563; G0378; J0171; J0360; J0461; J0692; J1644; J1815; J2185; J2248; J2270; J2704; J2765; J3370; J3371; J3475; J3480; J3490; J7030; J7040; J7050; J7060